=== PATIENT | male | born 1985 | race African-American/Black ===

== ENCOUNTER 2017-09-12 21:18 | Emergency (ER) | payer MEDICAID ==
[~2017-09-12] VITALS: Ht 182.9 cm; Wt 72.0 kg
[2017-09-12] MEDS ORDERED: BACITRACIN ZINC OINT UDPKT TOP ONE (22:00)
[2017-09-12] MEDS ORDERED: LIDOCAINE HCL 1% 20ML VIAL (Pyxis) INJ MC ONE (22:00)
[2017-09-12 23:18] VITALS: BP 121/71
== END 2017-09-12 23:48 | disposition home or self-care (01) ==
LOC: ER 22:21
DX: S51.012A Laceration without foreign body of left elbow, initial encounter (principal); X99.1XXA Assault by knife, initial encounter; Y93.89 Activity, other specified; Y92.018 Other place in single-family (private) house as the place of occurrence of the external cause
CPT/HCPCS: 12002; 99283; J3490; X7700; Z7610

== ENCOUNTER 2017-09-14 15:53 | Emergency (ER) | payer MEDICAID ==
[~2017-09-14] VITALS: Ht 182.9 cm; Wt 75.0 kg
[2017-09-14] MEDS ORDERED: IBUPROFEN 600MG TABLET PO ONE (16:30)
[2017-09-14 16:31] VITALS: BP 137/67
== END 2017-09-14 16:48 | disposition home or self-care (01) ==
LOC: ER 15:53
DX: S51.012D Laceration without foreign body of left elbow, subsequent encounter (principal); X58.XXXD Exposure to other specified factors, subsequent encounter
CPT/HCPCS: 99282

== ENCOUNTER 2017-09-15 15:50 | Emergency (ER) | payer MEDICAID ==
[~2017-09-15] VITALS: Ht 182.9 cm; Wt 75.0 kg
[2017-09-15] MEDS ORDERED: IBUPROFEN 600MG TABLET PO ONE (17:00)
[2017-09-15 17:10] VITALS: BP 121/66
== END 2017-09-15 17:36 | disposition home or self-care (01) ==
LOC: ER 15:59
DX: S51.012D Laceration without foreign body of left elbow, subsequent encounter (principal); X58.XXXD Exposure to other specified factors, subsequent encounter
CPT/HCPCS: 99282

== ENCOUNTER 2017-09-28 20:14 | Emergency (ER) | payer MEDICAID | END 2017-09-28 22:00 | disposition left against medical advice (07) | LOC: ER 21:53 | DX: Z48.02 Encounter for removal of sutures (principal); Z53.21 Procedure and treatment not carried out due to patient leaving prior to being seen by health care provider ==

== ENCOUNTER 2022-11-29 09:48 | Emergency (ER) | payer MEDICAID ==
[~2022-11-29] VITALS: Ht 182.9 cm; Wt 72.0 kg
[2022-11-29 10:15] VITALS: BP 125/78
[2022-11-29] MEDS ORDERED: AMOX-494 MT (11:22)
[2022-11-29] MEDS ORDERED: IBUP-2029 MT (11:22)
== END 2022-11-29 12:15 | disposition home or self-care (01) ==
LOC: ER 09:48
DX: K08.89 Other specified disorders of teeth and supporting structures (principal)
CPT/HCPCS: 99283